=== PATIENT | male | born 1990 | race African-American/Black ===

== ENCOUNTER 2020-10-30 15:07 | Emergency (ER) | payer OTHER ==
[2020-10-30 16:19] LABS: BUN/CREATININE RATIO 19 (0-10)
[2020-10-30] MEDS ORDERED: VISTARIL50 MG PO (18:37)
[2020-10-30] MEDS ORDERED: MOBIC15 MG PO (18:37)
== END 2020-10-30 18:48 | disposition home or self-care (01) ==
LOC: ER1 15:07
PROVIDERS: Family Medicine
DX: R00.2 Palpitations (principal); R07.9 Chest pain, unspecified; Z90.89 Acquired absence of other organs; Z79.899 Other long term (current) drug therapy
CPT/HCPCS: 71045; 80053; 81001; 82550; 82553; 83874; 84484; 85025; 93005; 99285